=== PATIENT | female | born 1955 | race Caucasian/White ===

== ENCOUNTER 2024-12-24 09:31 | Inpatient (IN) | payer OTHER, SELFPAY ==
[2024-12-24] VITALS (20 sets, daily range): BP systolic 122–181; BP diastolic 50–126; BMI 36.3; BMI 36.4
[2024-12-24 04:23] LABS: % Basophils 0.7 % (0-2); % Eosinophils 2.7 % (0-6); % Immature Granulocytes 0.3 % (0-0.5); % Lymphocytes 21.1 % (20.5-51.1); % Monocytes 7.2 % (1.7-9.3); Absolute Basophils 0.1 10^3/uL (0-0.2); Absolute Eosinophils 0.3 10^3/uL (0-0.7); Absolute Lymphocytes 2.4 10^3/uL (1.2-3.4); Absolute Monocytes 0.8 10^3/uL (0.1-0.6); Absolute Neutrophils 7.8 10^3/uL (1.4-6.5); Hematocrit 30.5 % (37.0-47.0); Hemoglobin 10.1 g/dL (12.0-16.0); Mean Corp Hgb Conc. 33.1 g/dL (33.0-37.0); Mean Corpuscular Hgb 30.3 pg (27.0-31.0); Mean Corpuscular Volume 91.6 fL (81.0-99.0); Mean Platelet Volume 11.3 fL (7.4-10.4); Nucleated Red Blood Cells % 0 %; Platelet Count 246 10^3/uL (130-400); Red Blood Cell Count 3.33 10^6/uL (4.20-5.40); Red Cell Dist. Width 13.2 % (11.5-14.5); White Blood Cell Count 11.5 10^3/uL (4.8-10.8)
[2024-12-24 04:24] LABS: NT-proBNP 996 pg/ml; Troponin I < 0.012 ng/ml
[2024-12-24 04:29] LABS: ALT (SGPT) 18 U/L (0-35); AST (SGOT) 21 U/L (14-36); Alkaline Phosphatase 67 U/L (38-126); Blood Urea Nitrogen 33 mg/dl (7-17); Calcium 9.1 mg/dl (8.4-10.2); Carbon Dioxide 24 mmol/L (22-30); Chloride 105 mmol/L (98-107); Glucose 145 mg/dl (70-99); Potassium 6.1 mmol/L (3.5-5.1); Sodium 138 mmol/L (135-145); Total Bilirubin 0.3 mg/dl (0.2-1.3); Total Protein 7.1 g/dl (6.3-8.2); eGFR 43.96
[2024-12-24 05:17] LABS: ALT (SGPT) 16 U/L (0-35); AST (SGOT) 19 U/L (14-36); Albumin 3.3 g/dl (3.5-5.0); Alkaline Phosphatase 60 U/L (38-126); Blood Urea Nitrogen 33 mg/dl (7-17); Calcium 9.1 mg/dl (8.4-10.2); Carbon Dioxide 26 mmol/L (22-30); Chloride 106 mmol/L (98-107); Glucose 137 mg/dl (70-99); Potassium 6.1 mmol/L (3.5-5.1); Sodium 137 mmol/L (135-145); Total Bilirubin 0.3 mg/dl (0.2-1.3); Total Protein 6.2 g/dl (6.3-8.2); eGFR 43.96
--- NOTE | 2024-12-24 06:16 | ED.GENMED ---
History of Present Illness
General
Chief Complaint: Breathing Problem
Source: patient and family (Daughter who also interpreted)
Time Seen by Provider: 12/24/24 05:58
History of Present Illness
History of Present Illness:
69-year-old female who recently emigrated to this area from [place] presents to the emergency room complaining of shortness of breath, tightness of her chest and mild cough. Symptoms have been progressing over the past 4 days. No fever. Patient
appears short of breath with exertion. She has not had much in the way of medical care here in the [place] other than a couple primary care doctor visits. She does take medication for high cholesterol, hypertension, diabetes. Patient has
never smoked. Patient was unable to walk from the parking lot to the emergency room without stopping due to the shortness of breath. This is atypical for her.
Phy Exam
Physical Exam
Physical Exam:
General: Awake, Alert, Oriented X3. Appears stated age, mildly short of breath
Vitals: Mildly tachypneic
Head: Atraumatic
Eyes: Pupils equal, EOMI
Throat: Airway intact, no exudates, somewhat dry
Neck: Trachea midline
Lungs: Few crackles in the bases but fairly clear
Heart: Regular rate, no murmurs
Abd: Soft, Nontender, No pulsatile mass
Neuro: Nonfocal
Skin: Warm, dry, no rash
Extremities: pulses equal b/l, 1+ edema
Scores
Heart Failure Risk
Heart Failure Risk Score: Yes
History of Stroke or TIA: No
History of intubation for respiratory distress: No
Heart rate on ED arrival >/= 110: No
SaO2 <90% on arrival on room air: No
HR >/=110 during 3min walk test (or too ill to perform test): Yes
ECG has acute ischemic changes: No
Urea >/=12mmol/L (BUN 33.6mg/dL): Yes
Serum CO2>/=35mmol/L: No
Troponin I or T elevated to AK Level (0.4mg/dL): No
NT-proBNP >/=5,000ng/L (5,000pg/ml): No
HF Risk Score: 3
Admission Status: HIGH RISK 15.9% Consider SNF treatment or admission to hospital
Course
Orders/Labs/Results
Orders:
Orders
12/24/24 03:13
Electrocardiogram (*1) Urgent
Reason for Study: Other
Other Reason for Exam: Respiratory Distress
EKG- Treatment ONCE
CR Chest - 2 Views Urgent
Comment:
Reason For Exam: respiratory distress
12/24/24 03:32
Complete Blood Count/With Diff Urgent
Comprehensive Metabolic Panel Urgent
NT-proBNP Urgent
Troponin I Urgent
12/24/24 04:46
Comprehensive Metabolic Panel Urgent
12/24/24 Breakfast
Cholesterol Lowering
At Your Request: Full Participation
Fluid Restriction: 1440 mL/day (48 oz)
Cholesterol Lowering: Sodium, 2 Gram
12/24/24 06:16
Electrocardiogram (*1) Urgent
Reason for Study: Chest Pain
CT Chest PE Study Urgent
Comment:
Reason For Exam: chest pain, sob
EKG- Treatment ONCE
12/24/24 06:41
COVID-19 Antigen Urgent
Source: Nasal Swab
Influenza A+B Rapid Molecular Urgent
BERTA Source: Nasal Swab
Specimen Description:
12/24/24 07:18
0.9% Sodium Chloride 1000 ml [Nss] 1,000 ml IV BOLUS
12/24/24 08:08
Troponin I Urgent
12/24/24 08:15
0.9% Sodium Chloride 1000 ml [Nss] 1,000 ml IV 100 mls/hr
Furosemide [Lasix] 40 mg IV NOW STA
12/24/24 08:49
Admit/Transfer Patient As Directed
Co-Sign Provider:
Level of Care: Inpatient admission
Assign to:: Telemetry
Physician / Group: benoit/medicine
Diagnosis: chf, new onset
Reason for Telemetry: Arrhythmia
Date to Stop Telemetry: 12/27/24
Time to Stop Telemetry: 11:00
Reason for Hospitalization: chf, new onset
Expected length of stay greater than two midnights?: Yes
ELOS- Estimated Length of Stay in days: 3
I certify the patient meets the requirements for IP care: Yes
PRN Pain Medication Management As Directed
May give lesser potent ordered pain med per pt: Yes
preference::
Protocol:: Medication orders for pain may be administered in a
manner that supports deferring to patient preference
when the pt is:
- Requesting an ordered lesser potent pain medication.
Least to most potent pain medications are defined
as: acetaminophen < NSAID < tramadol < opioids
(morphine, oxycodone, hydromorphone).
- Requesting a lesser dose of the same medication IF
ORDERED.
- Requesting a less intrusive route of administration
if both routes are prescribed by the provider (PO <
IV).
12/24/24 08:50
Code Status As Directed
Resuscitation Status: Full Code
12/24/24 11:59
Insulin Aspart Corrective Low [Novolog Flexpen-Low Resistance] See Protocol SC AC
12/24/24 11:59
CARDIOLOGY CONSULT Routine
Consulting Provider: Valeriy Santiago
Was physician already notified: Yes
HF DIETARY CONSULT Routine
HF EDUCATOR CONSULT Routine
Comment:
Activity As Directed
Activity Level: As Tolerated
Intake/ Output As Directed
Frequency: Per unit guidelines
Patient Education As Directed
Type: CHF folder
Comment: give on admission. Document in Interdisciplinary Education record
Sleep Apnea Assessment by RN As Directed
Comment:
Physician Instructions:
Vital Signs As Directed
Frequency: Other
Additional Instructions:: Q12 or per unit guidelines if more frequent.
Weight As Directed
Frequency: Daily
Type of Scale: Standing Scale
Comment: Daily morning weight. If unable to stand, use balanced bed scale.
Weight As Directed
Frequency: Once
Type of Scale: Standing Scale
Comment: Upon Admission. If unable to stand, use balanced bed scale.
Pulse Ox/cont/shift [RESP] Routine
Quantity: 1
Special Instructions: Daily pulse oximetry at rest. If greater than 92% at rest also obtain pulse oximetry
while ambulating as tolerated.
DX Deep Vein Thrombosis Video Routine
12/24/24 13:00
Aspirin Chewable [Low Strength Aspirin] 81 mg PO DAILY
12/24/24 13:08
Troponin I Q6H
Comment: at admission & every 6 hours x 2 (3 total), ECG to be done with each level
12/24/24 16:00
Heparin 5,000 units SC Q8
12/24/24 17:59
Troponin I Q6H
Comment: at admission & every 6 hours x 2 (3 total), ECG to be done with each level
12/24/24 20:00
Metoprolol [Lopressor] 50 mg PO BID
12/24/24 22:00
insulin glargine 30 unit SC HS
12/24/24 23:59
Troponin I Q6H
Comment: at admission & every 6 hours x 2 (3 total), ECG to be done with each level
12/25/24 06:00
Basic Metabolic Panel IN AM
Cardiovascular Evaluation IN AM
Complete Blood Count/No Diff IN AM
Hgba1c [Glycohemoglobin (HgbA1c)] IN AM
TSH Reflex To Free T4 IN AM
12/25/24 08:00
Furosemide [Lasix] 40 mg IV DAILY
Rosuvastatin Calcium [Crestor] 40 mg PO DAILY
12/26/24 06:00
Basic Metabolic Panel IN AM
12/27/24 06:00
Basic Metabolic Panel IN AM
12/27/24 11:00
DC Protocol for Telemetry ONCE
Abnormal Lab Results
12/24/24 12/24/24
03:32 04:46
WBC 11.5 H 10^3/uL
(4.8-10.8)
RBC 3.33 L 10^6/uL
(4.20-5.40)
Hgb 10.1 L g/dL
(12.0-16.0)
Hct 30.5 L %
(37.0-47.0)
MPV 11.3 H fL
(7.4-10.4)
Absolute Neuts (auto) 7.8 H 10^3/uL
(1.4-6.5)
Absolute Monos (auto) 0.8 H 10^3/uL
(0.1-0.6)
Potassium 6.1 H* mmol/L 6.1 H* mmol/L
(3.5-5.1) (3.5-5.1)
BUN 33 H mg/dl 33 H mg/dl
(7-17) (7-17)
Creatinine 1.3 H mg/dL 1.3 H mg/dL
(0.6-1.0) (0.6-1.0)
Glucose 145 H mg/dl 137 H mg/dl
(70-99) (70-99)
Total Protein 6.2 L g/dl
(6.3-8.2)
Albumin 3.3 L g/dl
(3.5-5.0)
12/24/24 03:32
12/24/24 04:46
Vital Signs
Initial and Last Documented VS:
Initial Vital Signs
Temp Pulse Resp BP Pulse Ox
98.2 F 69 32 141/63 96
12/24/24 03:16 12/24/24 03:16 12/24/24 03:16 12/24/24 03:16 12/24/24 03:16
Last Documented Vital Signs
Temp Pulse Resp BP Pulse Ox
98.2 F 60 24 152/62 97
12/24/24 03:16 12/24/24 10:30 12/24/24 04:05 12/24/24 11:00 12/24/24 10:30
MDM/Problems Addressed
Differential Diagnosis Includes:
CHF, PE, symptomatic anemia, pneumonia
MDM/Problems Addressed:
Patient presents complaining of increasing shortness of breath over the past 4 days. She appears somewhat short of breath. Labs show mild anemia. Her BUN and creatinine are a bit elevated but not in a significant way however her potassium is
elevated at 6.1. This was repeated and verified. Patient does not take potassium supplementation. She does take losartan which rarely may be associated with hyperkalemia. EKG shows normal sinus rhythm without any peaking of the T waves or
increased intervals. There first no electrocardiographic changes related to the hyperkalemia. Patient's BNP is elevated and she does have peripheral edema which the patient's daughter states is new. COVID and flu are negative. CT shows no PE.
Ultimately I feel the patient is likely experiencing congestive heart failure. She was given a dose of IV Lasix which should also help lower the potassium. Patient readmitted to the hospital service for further treatment and testing.
*Radiology
Radiology exam reviewed: preliminary read by ED provider (No acute disease) and radiology read reviewed
*Pulse Oximetry
Patient hypoxic: no
*EKG
Interpreted by ED Provider?: Yes
Heart Rate: 73
Rate: normal
Rhythm: sinus
Holton: normal axis
Interval: normal interval
QRS Pattern: normal QRS
Ischemia: no ischemia
*Fruit Preserver Interpretation
Rate: normal
Interpretation: normal
Rhythm: sinus
*Critical Care Note
Total Time (30-74mins, 75-104mins- exclusive of procedures): Not Applicable
Patient Management
Social determinants of health affecting care: Other (Recent immigrant just establishing medical care)
ED Attending Note
-
Portions of this chart may have been created with voice recognition software.� Occasional wrong word or��sound alike� substitutions may have occurred due to the inherent limitations of voice recognition software.
Discharge Plan
Departure
Patient Disposition: Admit
Date of Disposition: 12/24/24
Time of Disposition: 08:22
Admit to: Telemetry
Presentation/result/management discussed w/ accepting MD/DO: Hospitalist
Condition: Fair
Discharge Problem:
CHF (congestive heart failure), Acute hyperkalemia
Interventions
Interventions:
*Risk Screen - Suicide Last Done: 12/24/24 03:16
*General Assessment Last Done: 12/24/24 03:16
*Neglect/Abuse Screening Last Done: 12/24/24 03:16
*ED- Fall Risk Assessment Last Done: 12/24/24 04:30
*ED COVID-19 Vaccine History Last Done: 12/24/24 07:25
ED- Cardiac Assessment Last Done: 12/24/24 03:54
ED- Pulmonary Assessment Last Done: 12/24/24 03:54
[2024-12-24] MEDS: NSS 1000 IV ×2 (07:34→08:21)
[2024-12-24 07:41] LABS: COVID-19 Antigen Negative (Negative)
[2024-12-24] MEDS: LASIX 40 MG IV (08:21)
[2024-12-24 08:37] LABS: Troponin I < 0.012 ng/ml
[2024-12-24] MEDS: LOW STRENGTH ASPIRIN 81 MG PO (13:10)
[2024-12-24 13:21] LABS: Glucose - Point of Care 89 mg/dl (70-99)
[2024-12-24] MEDS: NOVOLOG FLEXPEN-LOW RESISTANCE SC ×2 (13:21→16:48)
[2024-12-24 13:40] LABS: Troponin I < 0.012 ng/ml
--- NOTE | 2024-12-24 14:30 | HPS.HSE ---
Addendum entered and electronically signed by David Sepulveda MD 12/24/24 15:09:
CAD, prior stent 2019 in [facility]
-does not appear to be evidence of ACS at this time
-trop and EKG normal
-cont ASA 81mg
-Trend trops
-ECHO
Statin
Original Note:
Family Physician
-
Family Physician: BRISSA MATA MD
Chief Complaint
-
Shortness of breath, chest tightness
History of Present Illness
69-year-old female recently immigrated from [facility], diabetes, hypertension, hyperlipidemia now presents for shortness of breath, chest tightness and mild cough. Patient's symptoms have progressed over the last 4 days. Acknowledges shortness of
breath upon exertion. Denies any fever chills nor sick contacts. No chest pain. Has not been followed up consistently while in the [place]. Patient is heart rate 60 although on Lopressor, blood pressure 152/62, saturating 97% on room air. White
count 11.5, potassium 6.1, creatinine 1.3 (unknown baseline) SARS-CoV-2 and influenza negative. Chest CT with trace amounts of pleural fluid in the posterior and inferior lower chest bilaterally. Was given Lasix in the ED.
Medical History
Past Medical History
Past Medical History: Reports HTN, Hypercholesterolemia and NIDDM
Past Surgical History: Reports None
Social History
Tobacco: Non-smoker
Alcohol: None
Drug: None
Family History
Family History: Not pertinent
Allergies / Home Medications
Allergies reflects when Allergies were last updated in [employer].
Home Medications with original date entered in [employer]
Allergy/Medication List:
Allergies
Allergy/AdvReac Type Severity Reaction Status Date / Time
Penicillins Allergy Unknown Unknown Verified 12/24/24 07:29
Home Medications
aspirin 81 mg tablet 81 mg PO DAILY 12/24/24
insulin glargine 100 unit/mL (3 mL) subcutaneous pen 30 unit SC HS 12/24/24
losartan 50 mg tablet 50 mg PO BID 12/24/24
metformin 1,000 mg tablet 1,000 mg PO BID 12/24/24
metoprolol tartrate 50 mg tablet 50 mg PO BID 12/24/24
nifedipine 30 mg tablet,extended release 24 hr 30 mg PO DAILY 12/24/24
rosuvastatin 40 mg tablet 40 mg PO DAILY 12/24/24
semaglutide (weight loss) 1 mg/0.5 mL subcutaneous pen injector (Wegovy) 1 mg SC QWEEK 12/24/24
Review of Systems
-
History Source: Patient
A 12 point ROS was completed and negative except as noted: Yes
Physical Exam
Vital Signs
Vital Signs
Temp Pulse Resp BP Pulse Ox
98.2 F 60 24 152/62 97
12/24/24 03:16 12/24/24 10:30 12/24/24 04:05 12/24/24 11:00 12/24/24 10:30
Physical Exam
General: Well Developed and Well Nourished
HEENT: NormoCephalic
Respiratory: Crackles (b/l bases)
Cardiac: S1/S2 and Regular Rhythm
GI: Soft and Non Tender
Musculoskeletal: No Clubbing
Skin: Warm and Dry
Neuro: Awake, Alert, Oriented and AO x 3
Hematologic/Lymphatic: No Lymphadenopathy
Psych: Calm
Laboratory Results
-
12/24/24 03:32
12/24/24 04:46
Laboratory Results
Total Bilirubin 0.3 mg/dl (0.2-1.3) 12/24/24 04:46
AST 19 U/L (14-36) 12/24/24 04:46
ALT 16 U/L (0-35) 12/24/24 04:46
Alkaline Phosphatase 60 U/L (38-126) 12/24/24 04:46
Troponin I < 0.012 ng/ml 12/24/24 13:08
Data Reviewed
-
Diagnostic Radiology: Report Reviewed by me
CT Scan: Report Reviewed by me
Lab Data: Labs Reviewed by me
Impression/Plan
-
IMPRESSION:
69-year-old female recently immigrated from [facility], diabetes, hypertension, hyperlipidemia now presents for shortness of breath, chest tightness and mild cough. Admitted for suspected new onset CHF.
PLAN:
#SOB
-suspect new onset CHF, unknown type
� Continue IV lasix 40mg daily as Lasix na�ve
� Trend troponins
� Follow-up echocardiogram
� Follow-up TSH with reflex free T4
-� Follow lipid panel
� Monitor I's and O's, trend daily weights, renal function
�Hold nifedipine
� Continue aspirin 81 mg
�Cardiology consulted
� Anticipate switching Lopressor to Toprol
#?JOSE M versus CKD
� Continue to monitor with diuresis
-Hold losartan
#Hyperkalemia
� Monitor with Lasix
- BMP this evening
#Diabetes
� Hold metformin
� Continue insulin regimen, sliding scale
#Hypertension�Hold losartan; hold nifedipine; anticipate switching Lopressor to Toprol.
#Hyperlipidemia�continue statin
#DVT prophylaxis
� HSQ
--- NOTE | 2024-12-24 14:33 | CON.CAR ---
Consultation
Consultation Request
Date/Time Consultation Requested: 12/24/24, 11am
Date/Time Consultation Performed: 12/24/24, 1230pm
Requesting Provider: Derick
Performing Provider: Pamela
Reason for Consultation: SOB, HF
Medical History
-
Chief Complaint: SOB
History of Present Illness:
69 yo female with PMH of CAD, MA, stent in 2019 (in [facility]), HTN, hyperlipidemia, DM, CKD is admitted with SOB, chest tightness. Started about one week ago. Got worse over last 1-2 days. There is also edema.
Past Medical History
Past Medical History: CAD, HTN, Hypercholesterolemia, NIDDM and MA
Past Surgical History: Orthopedic (right ankle surgery)
Social History
Tobacco: Non-Smoker
Family History
Family History: CAD (mother)
Allergies / Home Medications
Allergy/AdvReac Type Severity Reaction Status Date / Time
Penicillins Allergy Unknown Unknown Verified 12/24/24 07:29
�Medication �Instructions �Recorded �Confirmed �Type
aspirin 81 mg tablet 81 mg PO DAILY 12/24/24 12/24/24 History
insulin glargine 100 unit/mL (3 30 unit SC HS 12/24/24 12/24/24 History
mL) subcutaneous pen
losartan 50 mg tablet 50 mg PO BID 12/24/24 12/24/24 History
metformin 1,000 mg tablet 1,000 mg PO BID 12/24/24 12/24/24 History
metoprolol tartrate 50 mg tablet 50 mg PO BID 12/24/24 12/24/24 History
nifedipine 30 mg tablet,extended 30 mg PO DAILY 12/24/24 12/24/24 History
release 24 hr
rosuvastatin 40 mg tablet 40 mg PO DAILY 12/24/24 12/24/24 History
semaglutide (weight loss) 1 mg/0.5 1 mg SC QWEEK 12/24/24 12/24/24 History
mL subcutaneous pen injector
(Wegovy)
Review of Systems
-
History Source: Family
Respiratory: Trouble Breathing
Musculoskeletal: Edema
Physical Exam
Vital Signs
Temp Pulse Resp BP Pulse Ox
98.2 F 60 24 152/62 97
12/24/24 03:16 12/24/24 10:30 12/24/24 04:05 12/24/24 11:00 12/24/24 10:30
Lab Results
12/24/24 03:32
12/24/24 04:46
Troponin I < 0.012 ng/ml 12/24/24 13:08
Rrn-A-Ufyalbjlxyo Pept 996 pg/ml 12/24/24 03:32
Physical Exam
General: Well Developed and Well Nourished
HEENT: Normocephalic and Anicteric
Respiratory: Clear and Non Labored Respirations
Cardiac: S1/S2 (normal), Regular Rhythm, Murmur (none) and Peripheral Edema (1+ LE edema)
Musculoskeletal: No Clubbing and No Cyanosis
Neuro: Awake and Alert
Psych: Calm
Impression / Plan
-
69 yo female with PMH of CAD, MA, stent in 2019 (in [facility]), HTN, hyperlipidemia, DM, CKD is admitted with SOB, chest tightness.
# SOB, edema
-suspect new acute HF, type unknown
-this is severe, requiring hospitalization with IV diuresis, and close monitoring of labs, tele
-continue IV lasix
-echo
# Hyperkalemia
-hold losartan
# CAD, prior stent
-does not appear to be evidence of ACS at this time
-trop and EKG normal
-cont ASA 81mg
# HTN
-ARB held for elevated K
-cont nifedipine and metoprolol
# Hyperlipidemia
-cont crestor 40mg daily
# CKD, unknown baseline
-trend Cr with diuresis
Data Reviewed
-
EKG: Tracing Personally Visualized and interpreted (NSR, no acute changes) and Discussed with Family
Labs: Labs Reviewed by me and Discussed with Family
[2024-12-24 15:15] LABS: Blood Urea Nitrogen 31 mg/dl (7-17); Calcium 9.2 mg/dl (8.4-10.2); Carbon Dioxide 28 mmol/L (22-30); Chloride 105 mmol/L (98-107); Glucose 103 mg/dl (70-99); Potassium 5.7 mmol/L (3.5-5.1); Sodium 139 mmol/L (135-145); eGFR 48.39
[2024-12-24] MEDS: HEPARIN 5000 UNITS SC ×2 (16:43→23:27)
[2024-12-24 16:49] LABS: Glucose - Point of Care 109 mg/dl (70-99)
[2024-12-24 18:43] LABS: Troponin I < 0.012 ng/ml
[2024-12-24 22:10] LABS: Glucose - Point of Care 167 mg/dl (70-99)
[2024-12-24] MEDS: LOPRESSOR 50 MG PO (22:21)
[2024-12-24] MEDS: LANTUS 0.3 UNITS SC (22:25)
[2024-12-24] MEDS: PROCARDIA XL (EXTENDED RELEASE) 30 MG PO (23:46)
[2024-12-24 23:52] LABS: Troponin I < 0.012 ng/ml
[2024-12-25] VITALS (9 sets, daily range): BP systolic 121–139; BP diastolic 56–67; BMI 36.0
--- NOTE | 2024-12-25 00:40 | PTCARENOTE ---
Rec'd pt as an admission from ED. Pt AAO*3, VSS, and SR on TELE monitor. Pt reported chest pressure at this time, EKG complete (no changes), BP elevated at 181/78, troponin collected as ordered, and JESS Lloyd notified. Pt bp then 162/71 and
154/66 after settling into room. Pt reported pain at 8/10, pulse ox 96% on room air. Pt given 20:00 troprolol as ordered once on unit. Pt frisian speaking and language line in room and available for pt communication and assessment. Rec'd order
for nifedipine and given as ordered. Pt reported some releif at this time, rating pain at 6/10. Pt oriented to unit and call schroeder. Daughter at bedside. Pt resting with call schroeder in reach and plan of care ongoing. See MAR and flowchart for full
pt care and assessment.
[2024-12-25 05:44] LABS: Hematocrit 30.5 % (37.0-47.0); Hemoglobin 10.3 g/dL (12.0-16.0); Mean Corp Hgb Conc. 33.8 g/dL (33.0-37.0); Mean Corpuscular Hgb 30.7 pg (27.0-31.0); Mean Corpuscular Volume 90.8 fL (81.0-99.0); Mean Platelet Volume 10.8 fL (7.4-10.4); Platelet Count 244 10^3/uL (130-400); Red Blood Cell Count 3.36 10^6/uL (4.20-5.40); Red Cell Dist. Width 13.3 % (11.5-14.5); White Blood Cell Count 7.7 10^3/uL (4.8-10.8)
[2024-12-25 06:10] LABS: Blood Urea Nitrogen 33 mg/dl (7-17); Calcium 9.6 mg/dl (8.4-10.2); Carbon Dioxide 26 mmol/L (22-30); Chloride 106 mmol/L (98-107); Estimated Creatinine Clearance 40 ml/min; Glucose 109 mg/dl (70-99); HDL Cholesterol 52 mg/dl; LDL Cholesterol, Calculated 55 mg/dl; Potassium 5.4 mmol/L (3.5-5.1); Sodium 139 mmol/L (135-145); Total Cholesterol 148 mg/dl (50-199); Triglyceride 209 mg/dl (10-149); Very Low Density Lipoprotein 41 mg/dl (0-30); eGFR 40.22
[2024-12-25 06:41] LABS: TSH Reflex To Free T4 4.87 uIU/ml (0.47-4.68)
[2024-12-25 07:13] LABS: Free T4 1.02 ng/dl (0.78-2.19)
[2024-12-25 07:52] LABS: Glucose - Point of Care 97 mg/dl (70-99)
[2024-12-25] MEDS: NOVOLOG FLEXPEN-LOW RESISTANCE SC ×2 (08:05→14:13)
--- NOTE | 2024-12-25 08:45 | PTCARENOTE ---
Patient received from material handler 1st shift resting in bed, AAO x 3, denies pain. Setswana speaking, daughter at bedside. NSR via cm. Patient and daughter updated to plan of care for the day, in agreement. See work list for full assessment and interventions
performed.
[2024-12-25] MEDS: HEPARIN 5000 UNITS SC ×3 (08:55→23:00)
[2024-12-25] MEDS: PROCARDIA XL (EXTENDED RELEASE) 30 MG PO (08:55)
[2024-12-25] MEDS: CRESTOR 40 MG PO (08:55)
[2024-12-25] MEDS: LOPRESSOR 50 MG PO ×2 (08:55→20:13)
[2024-12-25] MEDS: LASIX 40 MG IV (08:55)
[2024-12-25] MEDS: LOW STRENGTH ASPIRIN 81 MG PO (08:55)
--- NOTE | 2024-12-25 10:30 | W.PN.CD ---
Today's Communication / Plan
-
For echo today
I placed an order for case management for costs of some HF meds
PO Lasix tomorrow
Daughter served as workers compensation coordinator today for me
Impression / Plan
-
69 yo female with PMH of CAD, [place], stent in 2019 (in [place]), HTN, hyperlipidemia, DM, CKD is admitted with SOB, chest tightness.
Suspected heart failure
- Admit weight 95.4 or 92.9 kg and now 92.2 kg and she is feeling better
- Improved with daily IV Lasix = > move to PO tomorrow 12/26/2024
- For Echo
- Case management to see if SGLT2-I will be an option and depending on echo if we want Entresto to see if that will be afforadable
- Likely not a great candidate for MRA (aldactone) given presentation with hyperkalemia
- Adjust meds furhter based on echo and cost of meds
Hyperkalemia
- Better with IV Lasix and losartan on hold
CAD, prior stent
HTN, ARB on hold for elevated K+
Hyperlipidemia, stable on Rosuvastatin 40mg daily
CKD, unknown baseline, Cr here is between 1.2-1.4
Physical Exam
Vital Signs/Labs
Vital Signs
Temp Pulse Resp BP Pulse Ox
97.7 F 63 18 139/64 97
12/25/24 07:40 12/25/24 10:00 12/25/24 07:40 12/25/24 08:55 12/25/24 07:40
12/24/24 12/25/24 12/26/24
06:59 06:59 06:59
Actual Weight 92.2 kg
12/25/24 05:28
12/25/24 05:28
Triglycerides 209 mg/dl (10-149) H 12/25/24 05:28
LDL Cholesterol, Calc 55 mg/dl 12/25/24 05:28
VLDL Cholesterol, Calc 41 mg/dl (0-30) H 12/25/24 05:28
HDL Cholesterol 52 mg/dl 12/25/24 05:28
Free T4 1.02 ng/dl (0.78-2.19) 12/25/24 05:28
12/24/24
03:32
Vuj-I-Cajnwkbocgt Pept 996
LAB Results
12/24/24 12/24/24 12/24/24
03:32 08:08 13:08
Troponin I < 0.012 < 0.012 < 0.012
12/24/24 12/24/24
18:13 23:21
Troponin I < 0.012 < 0.012
Physical Exam
Constitutional: No acute distress
EENT: Anicteric
Cardiovascular: Rhythm & rate is regular and Pedal edema is absent
Respiratory: Respiratory effort normal and Lungs clear to auscul.
GI: Soft and Distention absent
Neuro/Psych: Alert
Data Reviewed
-
Date of Service: December 25, 2024
[2024-12-25 13:24] LABS: Glycohemoglobin (HgbA1c) 9.1 % (4.0-5.6)
[2024-12-25 13:46] LABS: Glucose - Point of Care 114 mg/dl (70-99)
--- NOTE | 2024-12-25 14:03 | W.PN.HOSP.TC ---
Today's Communication/Plan
-
see plan
Assessment / Plan
Assessment / Plan
69 F recently immigrated from [facility], diabetes, hypertension, hyperlipidemia now presents for shortness of breath, chest tightness and mild cough. Admitted for suspected new onset CHF.
Gen: NAD, Awake and alert
Eyes: EOMI, PERRLA, no scleral icterus.
Neck: supple.
CV: RRR, +S1/S2, no m/r/g.
Resp: CTAB anteriorly, no rales, wheezes, or rhonchi.
Abd: +BS, soft, NT, ND
Skin: No rashes. Trace, dependent, B/L LE edema
Neuro: CN 2-12 intact, non-focal.
Psych: Normal mood and affect.
CTA chest: Respiratory artifact limits evaluation of the inferior subsegmental pulmonary arteries. Given this limitation, there is no evidence for pulmonary embolism. Trace amount of pleural fluid in the posterior and inferior lower chest
bilaterally. Linear densities within the posterior aspect of the mid to lower lungs, compatible with linear atelectasis. No evidence of consolidation to suggest pneumonia. Cholelithiasis.
CXR: Linear densities within both lower lungs, most likely linear atelectasis, although a component of linear scarring is also possible. No evidence of consolidation. Cardiomegaly with no convincing evidence for active vascular congestion.
Acute CHF:
-h/o CAD with prior stent [address] [facility]
-s/p IV lasix, now transitioned to PO Lasix
-Trops NEG x 5
-proBNP 996
-Echo pending
-cont BB
-cards following
Hyperkalemia:
-15g Kayexalate now
DM2:
-a1c 9.1%
-holding home Metformin
-cont Lantus/SSI/accuchecks
-diabetic diet
-c/s diabetes ACUTE CARE SURGEON
Other problems:
CKD3b
Essential HTN: Cont Lopressor/Procardia
Hyperlipidemia: cont statin
Obesity due to excess calories
FULL/Heparin
Anticipated Discharge: Within 24 hours
Subjective/Interval History
-
Date of Service: December 25, 2024
Objective Data
-
Labs:
Laboratory Results
12/25/24
05:28
WBC 7.7
Hgb 10.3 L
Hct 30.5 L
Plt Count 244
Sodium 139
Potassium 5.4 H
Chloride 106
Carbon Dioxide 26
BUN 33 H
Creatinine 1.4 H
Glucose 109 H
Calcium 9.6
Vital Signs:
Vital Signs
Temp Pulse Resp BP Pulse Ox
98.0 F 63 16 139/64 96
12/25/24 11:50 12/25/24 10:00 12/25/24 11:50 12/25/24 08:55 12/25/24 11:50
I&O
12/24/24 12/25/24 12/26/24
06:59 06:59 06:59
Intake Total 240 / 240 240 / 240
Balance 240 / 240 240 / 240
--- NOTE | 2024-12-25 15:23 | CM ---
spoke to pt in room, her granddaughter is in the room and translating. she is prev indep, lies with her daughter and granddaughter in an apt with no steps to enter. she has a cane she uses. plan is for dc to home when medically stable
--- NOTE | 2024-12-25 16:03 | CM ---
priced meds with pts perscript plan: aditya is non-formulary is a tier 5 ([phone]), nasra and irineo are tier 2- she pays 45% of the cost ( approx 390/mo) until she pays the remaining $1350 on her plan then she will be in
the catastrophic phase.
--- NOTE | 2024-12-25 16:15 | PN.DE.MGMTRT ---
Insulin Management
- -
12/25/2024: Diabetes management Consult
69 year old female who presented to the ED with SOB, chest tightness and mild cough. Pt was admitted for suspected new onset CHF.
PMH: CAD, [place], stent in 2019 (in [facility]), HTN, HLD, CKD and T2DM. 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
Per Dtr, pt was taking Glargine 30 units @ HS, Wegovy weekly and Metformin 1000mg BID. Patient has a glucose monitor at home and tests her blood sugars 4x/day. Her A1C is 9.1%, Cr 1.2-1.4, eGFR 40.22
Glucose has been well controlled and in range since admission. Received Lantus 30 units @ HS, FBG 109 V, 97 POC.
12/24 premeal glucose was in range of 89 to 114, has not required any corrective insulin with meals.
Metformin oh hold for now due to JOSE M. Will make no changes to current regimen.
CM to check cost and co-pay of SGLT-2. Will cont to follow
Diabetes History
- -
Type of Diabetes: 2 requiring insulin
Pre-Admission Diabetes Regimen
12/25/24
05:28
Creatinine 1.4 H
Lab Results
Hemoglobin A1c 9.1 % (4.0-5.6) H 12/25/24 05:28
Insulin Pump Settings
IP Diabetes Regimen
12/24/24 12/24/24 12/25/24
16:47 22:09 05:28
Glucose 109 H
POC Glucose 109 H 167 H
12/25/24 12/25/24
07:50 13:44
Glucose
POC Glucose 97 114 H
Meal type: Breakfast
Amount consumed: 100%
Patient Education
[2024-12-25] MEDS: KAYEXALATE SUSPENSION 15 GRAMS PO (16:35)
[2024-12-25 17:20] LABS: Glucose - Point of Care 216 mg/dl (70-99)
[2024-12-25] MEDS: NOVOLOG FLEXPEN-LOW RESISTANCE 2 UNITS SC (18:38)
[2024-12-25 22:14] LABS: Glucose - Point of Care 201 mg/dl (70-99)
[2024-12-25] MEDS: LANTUS 0.3 UNITS SC (22:14)
[2024-12-26] VITALS (11 sets, daily range): BP systolic 103–130; BP diastolic 46–68; BMI 35.5
--- NOTE | 2024-12-26 00:48 | PTCARENOTE ---
Rec'd pt at change of shift. Pt AAO*3, VSS, and SR on TELE monitor. Pt given french literature on heart failure from [employer] pt education resource. Pt denies any pain or discomfort. Pt resting with call schroeder in reach, hospital transcribing operator head used
at bedside, and daughter at bedside. See MAR and flowchart for full pt care and assessment.
[2024-12-26 05:48] LABS: Blood Urea Nitrogen 39 mg/dl (7-17); Calcium 9.7 mg/dl (8.4-10.2); Carbon Dioxide 27 mmol/L (22-30); Chloride 107 mmol/L (98-107); Estimated Creatinine Clearance 35 ml/min; Glucose 125 mg/dl (70-99); Potassium 5.1 mmol/L (3.5-5.1); Sodium 140 mmol/L (135-145); eGFR 34.27
[2024-12-26] MEDS: NOVOLOG FLEXPEN-LOW RESISTANCE SC (08:30)
[2024-12-26 08:31] LABS: Glucose - Point of Care 114 mg/dl (70-99)
--- NOTE | 2024-12-26 08:31 | PN.DE.MGMTRT ---
Insulin Management
- -
12/26/2024: Diabetes management Follow up
69 year old female who presented to the ED with SOB, chest tightness and mild cough. Pt was admitted for suspected new onset CHF.
PMH: CAD, [place], stent in 2019 (in [facility]), HTN, HLD, CKD and T2DM. 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
Per Dtr, pt was taking Glargine 30 units @ HS, Wegovy weekly and Metformin 1000mg BID. Patient has a glucose monitor at home and tests her blood sugars 4x/day. Her A1C is 9.1%, Cr 1.2-1.4-->1.6, eGFR 34.27
Pt was off the floor for renal ultrasound at time of my visit.
Glucose has improved and remains in range, premeal 114 to 216, has not required any corrective insulin with meals.
Received Lantus 30 units @ HS, FBG 125 V, 114 POC.
Metformin remains on hold due to JOSE M. Will make no changes to current regimen.
CM checked cost and co-pay of SGLT-2 and it is cost prohibitive for pt. Will cont to follow
Meds at discharge: Glargine 30 units @ HS. Pt will need f/u BMP prior to resuming Metformin 1000mg BID and Wegovy weekly.
Diabetes History
- -
Type of Diabetes: 2 requiring insulin
Pre-Admission Diabetes Regimen
12/26/24
04:53
Creatinine 1.6 H
Lab Results
Hemoglobin A1c 9.1 % (4.0-5.6) H 12/25/24 05:28
Insulin Pump Settings
IP Diabetes Regimen
12/25/24 12/25/24 12/25/24
13:44 17:18 22:13
Glucose
POC Glucose 114 H 216 H 201 H
12/26/24
04:53
Glucose 125 H
POC Glucose
Meal type: Lunch
Meal type: Breakfast
Amount consumed: 100%
Amount consumed: 100%
Patient Education
[2024-12-26] MEDS: PROCARDIA XL (EXTENDED RELEASE) 30 MG PO (08:33)
[2024-12-26] MEDS: HEPARIN 5000 UNITS SC ×3 (08:33→22:33)
[2024-12-26] MEDS: LOW STRENGTH ASPIRIN 81 MG PO (08:33)
[2024-12-26] MEDS: CRESTOR 40 MG PO (08:33)
[2024-12-26] MEDS: LASIX 60 MG PO (08:33)
--- NOTE | 2024-12-26 08:39 | W.PN.CD ---
Addendum entered and electronically signed by Keanu Fuller MD 12/26/24 08:49:
BB do not play a role in treatment of HFpEF and she has mild SB=> will decrease metoprolol by 50%.
Original Note:
Today's Communication / Plan
-
OK fo home on Lasix 40 mg daily with daily weights/Low K+/Low Na+ diet and modest fluid restriction.
Our office will reach out for f/u in our office (will be a Dr. Santiago patient)
daughter served as visitor services coordinator today. All questions answered
Impression / Plan
-
69 yo female with PMH of CAD, [place], stent in 2019 (in [facility]), HTN, hyperlipidemia, DM, CKD is admitted with SOB, chest tightness.
Suspected heart failure with preserved EF
- Admit weight 95.4 or 92.9 kg and now 91 kg and she is feeling better
- Improved with daily IV Lasix = > Now on PO Lasix but will go down to 40 mg po daily for home
- Echo 12/25/2024 was unremarkable
- Case management note reviewed meds seem quite expensive, case management will see if family will pay for just Beatriz
- Likely not a great candidate for MRA (aldactone) given presentation with hyperkalemia => can reevaluate in followup
Hyperkalemia
- Better with IV Lasix and losartan on hold
CAD, prior stent
HTN, ARB on hold for elevated K+
Hyperlipidemia, stable on Rosuvastatin 40mg daily
CKD, unknown baseline, Cr here is between 1.2-1.4 and now at lower weight BUN up to 39 and Cr 1.6
Subjective: Feels well.
Data:
Echo 12/25/2024:
Normal LV size and function with no regional wall motion abnormalities.
LVEF is 55-60% by visual estimation. Normal diastolic function.
Normal right ventricular size and function.
No significant valvular disease.
Insufficient TR for estimation of PASP.
No prior study available for comparison.
Physical Exam
Vital Signs/Labs
Vital Signs
Temp Pulse Resp BP Pulse Ox
97.8 F 666 20 116/68 96
12/26/24 07:23 12/26/24 08:33 12/26/24 07:23 12/26/24 08:33 12/26/24 07:23
12/25/24 12/26/24 12/27/24
06:59 06:59 06:59
Actual Weight 92.2 kg 91 kg
12/25/24 05:28
12/26/24 04:53
Triglycerides 209 mg/dl (10-149) H 12/25/24 05:28
LDL Cholesterol, Calc 55 mg/dl 12/25/24 05:28
VLDL Cholesterol, Calc 41 mg/dl (0-30) H 12/25/24 05:28
HDL Cholesterol 52 mg/dl 12/25/24 05:28
Free T4 1.02 ng/dl (0.78-2.19) 12/25/24 05:28
12/24/24
03:32
Jzk-L-Gkwaqblhtch Pept 996
LAB Results
12/24/24 12/24/24 12/24/24
03:32 08:08 13:08
Troponin I < 0.012 < 0.012 < 0.012
12/24/24 12/24/24
18:13 23:21
Troponin I < 0.012 < 0.012
Physical Exam
EENT: Anicteric
Cardiovascular: Rhythm & rate is regular and Pedal edema is absent
Respiratory: Respiratory effort normal and Lungs clear to auscul.
GI: Soft and Distention absent
Neuro/Psych: AO x 3
Data Reviewed
-
Date of Service: December 26, 2024
[2024-12-26] MEDS: LOPRESSOR PO (09:20)
--- NOTE | 2024-12-26 09:41 | W.PN.HOSP.TC ---
Today's Communication/Plan
-
see plan
Assessment / Plan
Assessment / Plan
69 F recently immigrated from [facility], diabetes, hypertension, hyperlipidemia now presents for shortness of breath, chest tightness and mild cough. Admitted for suspected new onset CHF.
Gen: NAD, Awake and alert
Eyes: EOMI, PERRLA, no scleral icterus.
Neck: supple.
CV: RRR, +S1/S2, no m/r/g.
Resp: CTAB anteriorly, no rales, wheezes, or rhonchi.
Abd: +BS, soft, NT, ND
Skin: No rashes.
Neuro: CN 2-12 intact, non-focal.
Psych: Normal mood and affect.
CTA chest: Respiratory artifact limits evaluation of the inferior subsegmental pulmonary arteries. Given this limitation, there is no evidence for pulmonary embolism. Trace amount of pleural fluid in the posterior and inferior lower chest
bilaterally. Linear densities within the posterior aspect of the mid to lower lungs, compatible with linear atelectasis. No evidence of consolidation to suggest pneumonia. Cholelithiasis.
CXR: Linear densities within both lower lungs, most likely linear atelectasis, although a component of linear scarring is also possible. No evidence of consolidation. Cardiomegaly with no convincing evidence for active vascular congestion.
Echo: Normal LV size and function with no regional wall motion abnormalities.
LVEF is 55-60% by visual estimation. Normal diastolic function.
Normal right ventricular size and function.
No significant valvular disease.
Insufficient TR for estimation of PASP.
No prior study available for comparison.
Acute HFpEF:
-h/o CAD with prior stent 2019 in [facility]
-s/p IV lasix, now transitioned to PO Lasix
-Trops NEG x 5
-proBNP 996
-Echo above
-cont BB (lower dose with bradycardia)
-cards following. Discussed with Dr. Fuller. He has medically cleared the pt for d/c from his standpoint on Lasix 40mg daily, Lopressor 25mg BID.
JOSE M on CKD3a:
-Cr increased to 1.6 from 1.2
-check U/A and renal U/S
DM2:
-a1c 9.1%
-holding home Metformin
-cont Lantus/SSI/accuchecks
-diabetic diet
-diabetes FREIGHT UNLOADER following
Other problems:
Hyperkalemia, resolved with Kayexalate. Low K diet on d/c
Essential HTN: Cont Lopressor/Procardia
Hyperlipidemia: cont statin
Obesity due to excess calories
Family updated at bedside.
FULL/Heparin
Total time spent on today's encounter was 50 minutes which included time spent in counseling the patient/family regarding diagnosis and treatment plan as listed above, goals of care, and symptom management. Case was discussed with nursing staff,
specialists, and care coordinators/case management. All labs and imaging personally reviewed by me. Remainder the time spent in detailed review of previous records, lab data, imaging, and other medical provider documentation.
Anticipated Discharge: Within 24 hours
Subjective/Interval History
-
Date of Service: December 26, 2024
No new complaints.
Objective Data
-
Labs:
Laboratory Results
12/26/24
04:53
Sodium 140
Potassium 5.1
Chloride 107
Carbon Dioxide 27
BUN 39 H
Creatinine 1.6 H
Glucose 125 H
Calcium 9.7
Vital Signs:
Vital Signs
Temp Pulse Resp BP Pulse Ox
97.8 F 666 20 116/68 96
12/26/24 07:23 12/26/24 08:33 12/26/24 07:23 12/26/24 08:33 12/26/24 07:23
I&O
12/25/24 12/26/24 12/27/24
06:59 06:59 06:59
Intake Total 240 / 240 240 / 240
Balance 240 / 240 240 / 240
[2024-12-26] MEDS: LOPRESSOR 25 MG PO ×2 (09:56→20:39)
--- NOTE | 2024-12-26 10:36 | CM ---
poke to pt/daughter about med pricing. daughter would like to discuss with cardiol prior to deciding generic vs brand. Dr Fuller notified.
[2024-12-26 11:36] LABS: Urine Albumin 3+ (Neg - Trace); Urine Bilirubin Negative (Negative); Urine Character Clear (Clear); Urine Color Yellow; Urine Glucose Negative (Negative); Urine Ketone Negative (Negative); Urine Leukocyte 2+ (Negative); Urine Nitrite Negative (Negative); Urine Occult Blood Negative (Negative); Urine Urobilinogen Negative (Neg - 1+)
[2024-12-26 11:59] LABS: Glucose - Point of Care 191 mg/dl (70-99)
[2024-12-26 13:35] LABS: Urine Squamous Cell >30 /LPF (Few)
[2024-12-26 13:36] LABS: Urine Amorphous Seen
[2024-12-26] MEDS: NOVOLOG FLEXPEN-LOW RESISTANCE 1 UNITS SC (13:37)
[2024-12-26 13:39] LABS: Urine Red Blood Cell 0-2 /HPF (0-2)
--- NOTE | 2024-12-26 16:29 | CM ---
spoke to pt/daughter about meds and pricing. pt given information on [facility] for medications, she will marsha and apply. if accepted she will get brand for $9 and generic for $6. family would like generic meds to start and will talk to MD when she gets
approved with [facility].
i also gave them applic for pt assist program for farxiga and entresto in case [facility] is not approved.
[2024-12-26 17:14] LABS: Glucose - Point of Care 244 mg/dl (70-99)
[2024-12-26] MEDS: NOVOLOG FLEXPEN-LOW RESISTANCE 22 UNITS SC (17:38)
--- NOTE | 2024-12-26 18:57 | PTCARENOTE ---
~4312-6064: handoff report received from nightshift RN. Translation utilized. Pt AOx4, NSR on tele, SBP 110s-120s, +1 BLE edema, RA satting high 90s. Pt denies pain at this time. Urine sent to lab for urinalysis. patinet transported via stretcher
for renal US. Daughter at bedside. All needs met at this time, call schroeder within reach.
~[id number]: patient and daughter spoke with CHF coordinator.
~[id number]: Patient in room with daughter. VSS. All needs met at this time, call schroeder within reach. Handoff report given to nightshift RN.
--- NOTE | 2024-12-26 21:45 | PTCARENOTE ---
Rec'd pt at change of shift. Pt AAO*3 VSS, and SR on TELE monitor. Pt denies any pain or discomfort. Pt updated on plan of care and kazakh speaking with hospital vp publisher development at bedside. Daughter at bedside and pt resting with call schroeder in reach
and plan of care ongoing. See MAR and flowchart for full pt care and assessment.
[2024-12-26 22:27] LABS: Glucose - Point of Care 193 mg/dl (70-99)
[2024-12-26] MEDS: LANTUS 0.3 UNITS SC (22:33)
[2024-12-27 05:04] VITALS: BP 134/65
[2024-12-27 05:06] VITALS: BP 134/65
[2024-12-27 05:17] VITALS: BMI 35.4
[2024-12-27 06:00] LABS: Blood Urea Nitrogen 47 mg/dl (7-17); Calcium 9.3 mg/dl (8.4-10.2); Carbon Dioxide 26 mmol/L (22-30); Chloride 108 mmol/L (98-107); Estimated Creatinine Clearance 32 ml/min; Glucose 145 mg/dl (70-99); Potassium 4.8 mmol/L (3.5-5.1); Sodium 141 mmol/L (135-145); eGFR 31.86
[2024-12-27 07:24] VITALS: BP 122/63
[2024-12-27 07:44] VITALS: BMI 35.4
--- NOTE | 2024-12-27 08:06 | W.PN.HOSP.TC ---
Addendum entered and electronically signed by Yunior Tidwell MD 12/27/24 10:05:
Total time spent on d/c = 31 min. This included today's physical exam, progress note, review of laboratory and diagnostic data, preparation of discharge documents and prescriptions, and discussions about the pt's hospital course and discharge plan
with the patient and other medical office clerk involved in the patient's care.
Original Note:
Today's Communication/Plan
-
d/c after seen by renal
Assessment / Plan
Assessment / Plan
69 F recently immigrated from [facility], diabetes, hypertension, hyperlipidemia now presents for shortness of breath, chest tightness and mild cough. Admitted for suspected new onset CHF.
Gen: NAD, Awake and alert
Eyes: EOMI, PERRLA, no scleral icterus.
Neck: supple.
CV:remains RRR, +S1/S2, no m/r/g.
Resp: CTAB, no rales, wheezes, or rhonchi.
Abd: +BS, soft, NT, ND
Skin: No rashes. No LE edema
Neuro: CN 2-12 intact, non-focal.
Psych: Normal mood and affect.
CTA chest: Respiratory artifact limits evaluation of the inferior subsegmental pulmonary arteries. Given this limitation, there is no evidence for pulmonary embolism. Trace amount of pleural fluid in the posterior and inferior lower chest
bilaterally. Linear densities within the posterior aspect of the mid to lower lungs, compatible with linear atelectasis. No evidence of consolidation to suggest pneumonia. Cholelithiasis.
CXR: Linear densities within both lower lungs, most likely linear atelectasis, although a component of linear scarring is also possible. No evidence of consolidation. Cardiomegaly with no convincing evidence for active vascular congestion.
Echo: Normal LV size and function with no regional wall motion abnormalities.
LVEF is 55-60% by visual estimation. Normal diastolic function.
Normal right ventricular size and function.
No significant valvular disease.
Insufficient TR for estimation of PASP.
No prior study available for comparison.
Acute HFpEF:
-h/o CAD with prior stent 2019 in [place]
-s/p IV lasix, now transitioned to PO Lasix
-Trops NEG x 5
-proBNP 996
-Echo above
-cont BB (lower dose with bradycardia)
-cards following. Discussed with Dr. Fuller. He has medically cleared the pt for d/c from his standpoint on Lasix 40mg daily, Lopressor 25mg BID.
JOSE M on CKD3a:
-Cr increased to 1.7 from 1.2
-c/s renal
-renal U/S: No acute disease of the chest
-U/A unremarkable
DM2:
-a1c 9.1%
-holding home Metformin
-cont Lantus/SSI/accuchecks
-diabetic diet
-diabetes DRUM REEL CUTTER following
Other problems:
Hyperkalemia, resolved with Kayexalate. Low K diet on d/c
Essential HTN: Cont Lopressor/Procardia
Hyperlipidemia: cont statin
Obesity due to excess calories
Family updated at bedside.
FULL/Heparin
Anticipated Discharge: Today
Subjective/Interval History
-
Date of Service: December 27, 2024
Denies CP/SOB.
Objective Data
-
Labs:
Laboratory Results
12/27/24
05:13
Sodium 141
Potassium 4.8
Chloride 108 H
Carbon Dioxide 26
BUN 47 H
Creatinine 1.7 H
Glucose 145 H
Calcium 9.3
Vital Signs:
Vital Signs
Temp Pulse Resp BP Pulse Ox
98.6 F 65 20 134/65 95
12/27/24 07:23 12/27/24 06:00 12/27/24 07:23 12/27/24 05:06 05/14/25 07:23
I&O
12/26/24 12/27/24 12/28/24
06:59 06:59 06:59
Intake Total 240 / 240
Output Total 250 / 250
Balance 240 / 240 -250 / -250
[2024-12-27 08:29] LABS: Glucose - Point of Care 129 mg/dl (70-99)
[2024-12-27] MEDS: PROCARDIA XL (EXTENDED RELEASE) 30 MG PO (09:12)
[2024-12-27] MEDS: NOVOLOG FLEXPEN-LOW RESISTANCE SC ×2 (09:12→12:21)
[2024-12-27] MEDS: CRESTOR 40 MG PO (09:13)
[2024-12-27] MEDS: LOPRESSOR 25 MG PO (09:13)
[2024-12-27] MEDS: LOW STRENGTH ASPIRIN 81 MG PO (09:13)
[2024-12-27] MEDS: HEPARIN SC (09:14)
[2024-12-27] MEDS: LASIX 40 MG PO (09:14)
--- NOTE | 2024-12-27 10:29 | W.CON.NEPH ---
Consultation
-
Date/Time Consultation Requested: 12/27/2024 9 AM
Date/Time Consultation Performed: 12/27/2024 10 AM
Requesting Provider: Dr. Tidwell
Performing Provider: Dr. Joya
Reason for Consultation: JOSE M
Medical History
-
Chief Complaint: Shortness of breath
History of Present Illness:
This is a 69-year female recently immigrated from [facility] 6 months ago. She now lives in the area with her family. She has a history of diabetes mellitus type 2 on oral medications and insulin which she feels has been under better control in the
last 10 years time. Unfortunately, she does not know any of her blood work results to support this. She has hypertension previously treated with a multidrug regimen, hyperlipidemia on statin therapy. [place] the [place] she has found a primary
care physician and has an appointment with them in 2 weeks time. Creatinine in this hospitalization had returned as low as 1.2 though recently has increased up to 1.7. We are asked to assist with management of her creatinine issues. She did have
a CT PE protocol on 12/24/2024 which showed no pulmonary embolism cardiac evaluation resulted in the diagnosis of heart failure preserved ejection fraction.
Past Medical History
Diabetes mellitus type 2
Hyperlipidemia
Hypertension
Proteinuria
Social History
Tobacco: Non-Smoker
Alcohol: None
Family History
Family History: Not Pertinent
Allergies / Home Medications
Allergy/AdvReac Type Severity Reaction Status Date / Time
Penicillins Allergy Unknown Unknown Verified 12/24/24 07:29
�Medication �Instructions �Recorded �Confirmed �Type
aspirin 81 mg tablet 81 mg PO DAILY 12/24/24 12/24/24 History
insulin glargine 100 unit/mL (3 30 unit SC HS 12/24/24 12/24/24 History
mL) subcutaneous pen
nifedipine 30 mg tablet,extended 30 mg PO DAILY 12/24/24 12/24/24 History
release 24 hr
rosuvastatin 40 mg tablet 40 mg PO DAILY 12/24/24 12/24/24 History
semaglutide (weight loss) 1 mg/0.5 1 mg SC QWEEK 12/24/24 12/24/24 History
mL subcutaneous pen injector
(Ruiz)
furosemide 40 mg tablet 40 mg PO DAILY #30 tabs 12/27/24 Rx
metoprolol tartrate 25 mg tablet 25 mg PO BID #60 tabs 12/27/24 Rx
Review of Systems
-
No chest pain or shortness of breath
Minimal edema
All other systems: Negative unless noted
Physical Exam
Vital Signs
Vital Signs
Temp Pulse Resp BP Pulse Ox
98.6 F 68 20 122/63 94
12/27/24 07:23 12/27/24 09:13 12/27/24 07:23 12/27/24 09:13 12/27/24 07:24
Lab Results
WBC 7.7 10^3/uL (4.8-10.8) 12/25/24 05:28
RBC 3.36 10^6/uL (4.20-5.40) L 12/25/24 05:28
Hgb 10.3 g/dL (12.0-16.0) L 12/25/24 05:28
Hct 30.5 % (37.0-47.0) L 12/25/24 05:28
Plt Count 244 10^3/uL (130-400) 12/25/24 05:28
Sodium 141 mmol/L (135-145) 12/27/24 05:13
Potassium 4.8 mmol/L (3.5-5.1) 12/27/24 05:13
Chloride 108 mmol/L (98-107) H 12/27/24 05:13
Carbon Dioxide 26 mmol/L (22-30) 12/27/24 05:13
BUN 47 mg/dl (7-17) H 12/27/24 05:13
Creatinine 1.7 mg/dL (0.6-1.0) H 12/27/24 05:13
eGFR 31.86 12/27/24 05:13
Glucose 145 mg/dl (70-99) H 12/27/24 05:13
Calcium 9.3 mg/dl (8.4-10.2) 12/27/24 05:13
Lcg-J-Pbagxxmfans Pept 996 pg/ml 12/24/24 03:32
Albumin 3.3 g/dl (3.5-5.0) L 12/24/24 04:46
Laboratory Tests
12/24/24 12/26/24
14:52 10:32
Creatinine 1.2 H
Urine Albumin 3+ A
Physical Exam
Patient is awake alert oriented and in no distress. Mood and affect were pleasant, insight and judgment were good. Pupils are equal round and reactive to light, extraocular movements are intact, sclera were anicteric. Hearing was normal, ears and
nose are intact. Oropharynx was clear. Neck was supple with trachea midline and no thyromegaly. Heart was regular rate and rhythm without rubs. Lower extremities with 1+ edema. Lungs were clear to auscultation bilaterally and with normal
excursion. Abdomen was soft, nontender, with normal active bowel sounds, and no hepatosplenomegaly. Skin was without rash and with normal turgor.
Data Reviewed
-
Radiology: Image Personally Visualized and interpreted (Chest x-ray 12/24/2024 by my reading cardiomegaly)
CT Scan: Report Reviewed by me (CT PE protocol no PE)
Ultrasound: Report Reviewed by me (Renal ultrasound 12/26/2024 right kidney 10.8 cm left kidney 9.0 cm no hydronephrosis)
Medical Tests (Nuc Med, Echo etc): Image Personally Visualized and interpreted (EKG 12/24/2024 by read normal sinus rhythm) and Report Reviewed by me (Echocardiogram 12/25/2024 EF 55% no valvular disease)
Old Records: Reviewed
Assessment/Plan
-
Assessment
Chest pain shortness of breath
Heart failure preserved ejection fraction
JOSE M
CKD, likely 3B
Proteinuria
Diabetes mellitus type 2
Hyperlipidemia
Hypertension
Edema
Plan
I discussed with the granddaughter who is at the bedside translating
She likely has chronic kidney disease with diabetic kidney disease given 20 years of diabetes. Her recent A1c of 9.1 would suggest that her diabetic control has not been optimal over time. She also has what likely appears to be significant
proteinuria which we will quantify. This is likely also on the basis of her diabetes. A serologic workup will be ordered at this time for completeness.
Recent rising creatinine is likely due to contrast exposure from her CT PE protocol. It does look like it will plateau.
She is for discharge and repeat blood work on Wednesday is recommended to follow creatinine trend.
Losartan will need to be held until the creatinine has returned to baseline
She will require nephrologic follow-up as an outpatient.
--- NOTE | 2024-12-27 10:30 | PN.DE.MGMTRT ---
Insulin Management
- -
12/27/2024: Diabetes management Follow up
69 year old female who presented to the ED with SOB, chest tightness and mild cough. Pt was admitted for suspected new onset CHF.
PMH: CAD, [place], stent in 2019 (in [facility]), HTN, HLD, CKD and T2DM. 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
Per Dtr, pt was taking Glargine 30 units @ HS, Wegovy weekly and Metformin 1000mg BID. Patient has a glucose monitor at home and tests her blood sugars 4x/day. Her A1C is 9.1%, Cr 1.2-1.4-->1.6-->1.7, eGFR 31.86
Pt awake, alert, oriented, sitting up in bed, offers no complaints, able to discuss diabetes care plan..
Glucose remains in range, noted for one elevation pre-dinner yesterday to 244, required 2 units of corrective insulin at dinner.
Received Lantus 30 units @ HS, FBG 145 V, 120 POC.
Metformin remains on hold due to JOSE M. Will make no changes to current regimen.
CM checked cost and co-pay of SGLT-2 and it is cost prohibitive for pt. Will cont to follow
Meds at discharge: Glargine 30 units @ HS. Pt will need f/u BMP prior to resuming Metformin 1000mg BID and Wegovy weekly.
Diabetes History
- -
Type of Diabetes: 2 requiring insulin
Pre-Admission Diabetes Regimen
12/27/24
05:13
Creatinine 1.7 H
Lab Results
Hemoglobin A1c 9.1 % (4.0-5.6) H 12/25/24 05:28
Insulin Pump Settings
IP Diabetes Regimen
12/26/24 12/26/24 12/26/24
11:58 17:13 22:25
Glucose
POC Glucose 191 H 244 H 193 H
12/27/24 12/27/24
05:13 08:28
Glucose 145 H
POC Glucose 129 H
Meal type: Dinner
Amount consumed: 100%
Patient Education
[2024-12-27 11:07] VITALS: BP 123/50
--- NOTE | 2024-12-27 12:15 | PTCARENOTE ---
Discussed all nursing measures w/ pt's daughter interpreting for the pt. Discharge instructions reviewed via [employer] ipad lathe mechanic. CHF instructions given in mauritanian. Pt and daughter verbalized understanding. Pt discharged w/ transport, via
wheelchair.
--- NOTE | 2024-12-27 12:19 | PTCARENOTE ---
Noted new insulin order at 1210. Pt discharged and no insulin given.
--- NOTE | 2024-12-27 12:28 | CM ---
CM following for DC planning needs.
Met w/ patient + dtr. at bedside.
Plan is for DC to home today. There are no identified DC needs.
Plan is for home, no needs.
[2024-12-27 13:27] LABS: Protein/creatinine Ratio 2.2; Urine Protein 135 mg/dl
--- NOTE | 2024-12-27 13:32 | W.PN.CD ---
Today's Communication / Plan
-
OK fo home on Lasix 40 mg daily with daily weights/Low K+/Low Na+ diet and modest fluid restriction.
Our office will reach out for f/u in our office (will be a Dr. Santiago patient)
Losartan is on hold until renal function returns to baseline
Nephrology plans outpatient followup (CKD from DM and contrast nephropathy)
daughter served as client advisor today. All questions answered
Impression / Plan
-
69 yo female with PMH of CAD, AR, stent in 2019 (in [facility]), HTN, hyperlipidemia, DM, CKD is admitted with SOB, chest tightness.
Suspected heart failure with preserved EF
- Admit weight 95.4/92.9 kg => 91 kg and now 90.5 kg and she is feeling better
- Lasix dose just decreased to 40 mg PO daily
- Echo 12/25/2024 was unremarkable
- Case management note reviewed meds seem quite expensive, case management will see if family will pay for just Beatriz
- Likely not a great candidate for MRA (Aldactone) given presentation with hyperkalemia => can reevaluate in followup
Hyperkalemia
- Better with IV Lasix and losartan on hold
Beta benjamín => now at 50% of admit dose because of mild SB
CAD, prior stent
HTN, ARB on hold for elevated K+
Hyperlipidemia, stable on Rosuvastatin 40mg daily
CKD, unknown baseline, Cr here is between 1.2-1.4 and now at lower weight BUN up to 39 and Cr 1.6 => 1.7
- Nephrology now on board and they suspect DM related CKD with JOSE M from contrast nephropathy
Subjective: Feels well.
Data:
Echo 12/25/2024:
Normal LV size and function with no regional wall motion abnormalities.
LVEF is 55-60% by visual estimation. Normal diastolic function.
Normal right ventricular size and function.
No significant valvular disease.
Insufficient TR for estimation of PASP.
No prior study available for comparison.
Physical Exam
Vital Signs/Labs
Vital Signs
Temp Pulse Resp BP Pulse Ox
98.4 F 61 20 123/50 95
12/27/24 11:07 12/27/24 11:07 12/27/24 11:07 12/27/24 11:07 12/27/24 11:07
12/26/24 12/27/24 12/28/24
06:59 06:59 06:59
Actual Weight 91 kg 90.5 kg
12/25/24 05:28
12/27/24 05:13
Triglycerides 209 mg/dl (10-149) H 12/25/24 05:28
LDL Cholesterol, Calc 55 mg/dl 12/25/24 05:28
VLDL Cholesterol, Calc 41 mg/dl (0-30) H 12/25/24 05:28
HDL Cholesterol 52 mg/dl 12/25/24 05:28
Free T4 1.02 ng/dl (0.78-2.19) 12/25/24 05:28
12/24/24
03:32
Sks-T-Qixcfhriciq Pept 996
LAB Results
12/24/24 12/24/24 12/24/24
13:08 18:13 23:21
Troponin I < 0.012 < 0.012 < 0.012
Physical Exam
Constitutional: No acute distress
EENT: Anicteric
Cardiovascular: Rhythm & rate is regular and Pedal edema is absent
Respiratory: Respiratory effort normal and Lungs clear to auscul.
GI: Soft and Distention absent
Neuro/Psych: AO x 3
Data Reviewed
-
Date of Service: December 27, 2024
--- NOTE | 2024-12-27 14:01 | W.DCSUMMARY ---
Discharge Summary
Discharge Data
Date of Admission: 12/24/24
Date of Discharge: 12/27/24
-
Pending Results: No
Hospital Course
Primary diagnoses:
Acute heart failure preserved ejection fraction
Acute kidney injury on chronic kidney disease stage IIIa
Uncontrolled type 2 diabetes mellitus
Secondary diagnoses:
Coronary artery disease with prior stent 2019 in [facility]
Hyperkalemia
Essential hypertension
Hyperlipidemia
Obesity due to excess calories
Consultants:
Cardiology
Nephrology
Imaging:
CTA chest: Respiratory artifact limits evaluation of the inferior subsegmental pulmonary arteries. Given this limitation, there is no evidence for pulmonary embolism. Trace amount of pleural fluid in the posterior and inferior lower chest
bilaterally. Linear densities within the posterior aspect of the mid to lower lungs, compatible with linear atelectasis. No evidence of consolidation to suggest pneumonia. Cholelithiasis.
CXR: Linear densities within both lower lungs, most likely linear atelectasis, although a component of linear scarring is also possible. No evidence of consolidation. Cardiomegaly with no convincing evidence for active vascular congestion.
Echo: Normal LV size and function with no regional wall motion abnormalities.
LVEF is 55-60% by visual estimation. Normal diastolic function.
Normal right ventricular size and function.
No significant valvular disease.
Insufficient TR for estimation of PASP.
No prior study available for comparison.
69-year-old female who initially presented with chief complaints of shortness of breath and chest tightness as outlined in the H&P done on admission. Hospital course per problem was
Acute HFpEF: The patient was diuresed with IV Lasix and then transition to oral Lasix. She had 5 negative troponins. proBNP was 996. Echo above. Beta-benjamín was continued but at a lower dose with bradycardia. Patient was seen in consultation
by cardiology and cleared for discharge.
JOSE M on CKD3a: The patient's Cr increased to 1.7 from 1.2. Renal ultrasound was read as no hydronephrosis, sonographic evidence of renal calculus or suspicious renal lesion. Urinalysis was unremarkable. The patient was seen in consultation by
nephrology and was medically cleared for discharge with a follow-up BMP in 5 days.
DM2: The patient's a1c 9.1%. Her home metformin was held and was not restarted due to her renal function. Her Lantus was continued. She was seen in consultation by the diabetes nurse practitioner while hospitalized.
Discharge Plan
-
Patient Disposition: Home (Routine Discharge)
Discharge Diagnosis/Procedures: Acute heart failure preserved ejection fraction, acute kidney injury on chronic kidney disease stage IIIa, uncontrolled type 2 diabetes mellitus
Condition: Good
Diet: Diabetic, Carb Controlled
Additional Diets: fluid restrict to 1500cc/day
Activity: As tolerated
Driving Restrictions: As prior to admission
Blood Work: BMP in 5 days, script from PCP
Specialty Instructions: Weigh Daily- Call MD for wt gain/loss 3 lbs overnight/5 lbs in 1 week
Instructions: *PCP/Other Scrap Drop Engineer Heart Failure Instructions
Referrals:
Chana Quan NP [Specified Professional Personl] - 01/02/25 11:00 am
BRISSA MATA MD [Family Provider] - in three to four days
Prescriptions:
New
furosemide 40 mg Tablet
40 mg PO DAILY Qty: 30 0RF
metoprolol tartrate 25 mg Tablet
25 mg PO BID Qty: 60 0RF
Continued
nifedipine 30 mg Tablet Extended Release 24hr
30 mg PO DAILY
aspirin 81 mg Tablet
81 mg PO DAILY
rosuvastatin 40 mg Tablet
40 mg PO DAILY
insulin glargine 100 unit/mL (3 mL) Insulin Pen
30 unit SC HS
Wegovy 1 mg/0.5 mL Pen Injector
1 mg SC QWEEK
Discontinued
losartan 50 mg Tablet
50 mg PO BID
metformin 1,000 mg Tablet
1,000 mg PO BID
metoprolol tartrate 50 mg Tablet
50 mg PO BID
Discharge Orders:
Discharge Patient (As Directed); Ordered 12/27/24
Ordered By: Yunior Tidwell
Care Plan Goals
Care Plan Goals:
Problem: Readiness for enhanced knowledge related to diagnosis and treatment plan
Goal: Understand your diagnosis and treatment plan needs, including medications if applicable.
Instructions: Know your diagnosis, underlying causes and treatment plan options, including medications if applicable. Consult with your health care team to learn about your diagnosis and treatment plan, including medications if applicable.
Discharge Date and Time
Discharge Date/Time: 12/27/24 12:26
Print Language: GREEK
[2024-12-27 23:34] LABS: Complement C3 178 mg/dl (88-165)
== END 2024-12-27 12:26 | disposition home or self-care (01) | DRG 291 ==
LOC: IVU 09:31
PROVIDERS: Emergency Medicine; ADMITTING PHYSICIAN Internal Medicine; ATTENDING PHYSICIAN Internal Medicine; CONSULT PHYSICIAN Internal Medicine; CONSULT PHYSICIAN Specialist; EMERGENCY PHYSICIAN Emergency Medicine; FAMILY PHYSICIAN Internal Medicine
DX: I13.0 Hypertensive heart and chronic kidney disease with heart failure and stage 1 through stage 4 chronic kidney disease, or unspecified chronic kidney disease (principal); I50.31 Acute diastolic (congestive) heart failure; N17.9 Acute kidney failure, unspecified; N18.31 Chronic kidney disease, stage 3a; E11.22 Type 2 diabetes mellitus with diabetic chronic kidney disease; E78.00 Pure hypercholesterolemia, unspecified; E87.5 Hyperkalemia; E66.09 Other obesity due to excess calories; Z68.35 Body mass index [BMI] 35.0-35.9, adult; I25.10 Atherosclerotic heart disease of native coronary artery without angina pectoris; Z82.49 Family history of ischemic heart disease and other diseases of the circulatory system; Z79.82 Long term (current) use of aspirin; Z79.4 Long term (current) use of insulin; Z79.84 Long term (current) use of oral hypoglycemic drugs; Z79.899 Other long term (current) drug therapy; Z88.0 Allergy status to penicillin; Z11.52 Encounter for screening for COVID-19
CPT/HCPCS: 71046; 71275; 76775; 80048; 80053; 80061; 81003; 81015; 82570; 82962; 83036; 83516; 83880; 84156; 84439; 84443; 84484; 85025; 85027; 86038; 86160; 87502; 87811; 93005; 93306; 96361; 96374; 99285; Q9967